=== PATIENT | female | born 1980 | race African-American/Black ===

== ENCOUNTER 2018-07-10 17:02 | Emergency (ER) | payer BC ==
[~2018-07-10] VITALS: Ht 167.6 cm; Wt 95.3 kg
[~2018-07-10 17:02] MED LIST: ACETAMINOPHEN325 M1 PO; ALLEGRA ALLERG180 MG PO; ESTRACE2 MG PO; IBUPROFEN200 M2 PO; MULTIVITAMINS PO; NASONEX17 GM NASAL; PROMETRIUM100 MG PO; SYNTHROID88 MCG PO
[2018-07-10 17:27] LABS: URINE BILIRUBIN NEGATIVE (Negative); URINE BLOOD TRACE (Negative); URINE CLARITY CLEAR; URINE COLOR YELLOW; URINE GLUCOSE-RANDOM* NEGATIVE (Negative); URINE KETONES NEGATIVE (Negative); URINE LEUKOCYTES-REFLEX NEGATIVE (Negative); URINE NITRITE-REFLEX NEGATIVE (Negative); URINE PROTEIN (DIPSTICK) NEGATIVE (Negative); URINE UROBILINOGEN 0.2 E.U./dl (0.2-1.0)
[2018-07-10 18:55] VITALS: BP 136/76
[2018-07-10] MEDS ORDERED: LIORESAL 10 MG10 MG PO (18:56)
[2018-07-10] MEDS ORDERED: MOBIC15 MG PO (18:56)
== END 2018-07-10 19:00 | disposition home or self-care (01) ==
LOC: ER 17:02
PROVIDERS: Physician Assistant
DX: S29.012A Strain of muscle and tendon of back wall of thorax, initial encounter (principal); E03.9 Hypothyroidism, unspecified; Z90.710 Acquired absence of both cervix and uterus; V49.09XA Driver injured in collision with other motor vehicles in nontraffic accident, initial encounter; Y93.89 Activity, other specified; Y92.89 Other specified places as the place of occurrence of the external cause; Y99.8 Other external cause status